=== PATIENT | female | born 1965 | race African-American/Black ===

== ENCOUNTER 2021-08-05 22:37 | Observation (INO) | payer OTHER, SELFPAY ==
--- NOTE | ~2021-08-05 | XR_ITS ---
EXAMINATION: XR thoracic spine 2V DATE: 08/07/2021 13:49 INDICATION: Back pain TECHNIQUE: AP, lateral and lateral swimmer's views of the thoracic spine were obtained. COMPARISON: None. FINDINGS: There is no fracture, dislocation, or subluxation. The vertebral body heights are normal. T here is mild loss of intervertebral disc space height at multiple levels in the thoracic spine. Small degenerative osteophytes project from the anterior endplates of multiple vertebral bodies. Left axil ruchi and superior mediastinal vascular stents are again noted. IMPRESSION: 1. Mild to moderate thoracic spondylosis without acute findings. Reviewed, dictated and finalized at location A.
--- NOTE | ~2021-08-05 | XR_ITS ---
EXAMINATION: XR chest 1V portable DATE: 08/06/2021 06:12 INDICATION: Shortness of breath TECHNIQUE: frontal view of the chest was obtained. COMPARISON: None FINDINGS: Streaky opacities in the left mid and bilateral lower lung zones and favor atelectasis over pneumonia . No pleural effusion or pneumothorax. Borderline heart size accounting for AP technique. Vascular st ents at the left axilla, unclear whether arterial or venous and at the superior mediastinum with coar se most consistent with the left brachiocephalic vein. IMPRESSION: 1. Mild streaky opacities in the left mid and bilateral lower lung zones and favor atelectasis over p neumonia. 2. Borderline heart size accounting for AP technique. Reviewed, dictated and finalized at location A. IMPRESSION: 1. Mild streaky opacities in the left mid and bilateral lower lung zones and fa vor atelectasis over pneumonia. 2. Borderline heart size accounting for AP technique.
--- NOTE | ~2021-08-05 | XR_ITS ---
EXAMINATION: XR lumbar spine 2-3V DATE: 08/07/2021 13:49 INDICATION: Low back pain TECHNIQUE: Anteroposterior and lateral views of the lumbar spine, and cone-down lateral view of the l umbosacral junction were obtained. COMPARISON: None. FINDINGS: There is no fracture, dislocation, or subluxation. There is mild loss of intervertebral dis c space height throughout the lumbar spine. The vertebral body heights are maintained. Calcified athe rosclerosis is noted. Small degenerative osteophytes project from the anterior endplates of multiple vertebral bodies. Surgical clips in the right upper quadrant are likely from prior cholecystectomy. IMPRESSION: 1. Mild lumbar spondylosis without acute findings. Reviewed, dictated and finalized at location A.
--- NOTE | 2021-08-05 21:17 | ADMGEN ---
This patient, Traci Zapata, was admitted to Medical Room 250-01. Patient/family oriented to hospital policies and general routines including ID bracelet, bed and alarms, visiting hours, pain management, procedures, bathroom and other care routines, personal items, smoking policy, room service/diet, and visiting hours. Information on how to activate the Rapid Response Team has been discussed. Patient/Family are encouraged to report perceived risks to care and to ask questions if they do not understand what they are told or what they should do.
[2021-08-05 21:58] VITALS: BP 164/85; PULSE 88; RESP 16; TEMP 36.5; O2SAT 99; BMI 30.2
[2021-08-05 22:00] VITALS: PULSE 101
--- NOTE | 2021-08-05 22:53 | PM.IMHP ---
H&P: HPI History of Present Illness Date/Time: 08/05/21 22:53 this is a 56-year-old female patient who went to [facility] for shortness of breath. The patient has end-stage renal disease and typically gets dialysis on Wednesday. The last time the patient had dialysis was this past Wednesday. Which was 1 week ago. The patient stated that she did not go to dialysis because she did not have a ride. The patient was checked for COVID-19 at the outside facility and was found to be negative. Patient's potassium was found to be 6.3. The outside facility did notify the nephrologists here Dr. Taylor who did not recommend any treatment for the hyperkalemia at this time and agrees to consult on the patient. The patient's blood sugar was found to be 114. BUN 96. Creatinine 19.0. Her anion gap was found to be 33. All of these labs were found to be abnormal at the outside facility. Report was given to me by Dr. Karuna Quinones. the patient was given a nebulizer treatment, regular insulin IV fluids x1. Her pulse ox was 98 % on room air. according to the ER doctor at the outside facility there was no dialysis available for the patient at their facility. The patient is being admitted to inpatient services on 08/05/2021 Chief Complaint: shortness of breath Review of Systems Review of Systems: All systems reviewed & are unremarkable except as noted in HPI and below Constitutional: Constitutional: Reports as per HPI and Reports no additional constitutional complaints Eyes: Eyes: Reports as per HPI and Reports no additional eye complaints ENT: Reports system reviewed and no additional complaints, except as documented and Reports Normal hearing present Cardiovascular: Cardiovascular: Reports no additional cardiovascular complaints Respiratory: Respiratory: Reports no additional respiratory complaints and Reports no additional respiratory complaints Gastrointestinal: Gastrointestinal: Reports as per HPI and Reports no additional gastrointestinal complaints Musculoskeletal: Musculoskeletal: Reports no additional musculoskeletal complaints Integumentary/Breasts: Skin/Breast: Reports system reviewed and no additional complaints, except as docu and Reports as per HPI Neurologic: Reports system reviewed and no additional complaints, except as documented, Reports as per HPI and Reports Normal hearing present Psychiatric: Psychiatric: Reports no additional psychiatric complaints and Reports as per HPI Endocrine: Endocrine: Reports no additional endocrine complaints Hematologic/Lymphatic: Hematologic/Lymphatic: Reports no additional hematologic/lymphatic complaints Allergic/Immunologic: Allergic/Immunologic: Reports no additional allergic/immunologic complaints PMFSH Past Medical History Medical History Chronic back pain DM2 (diabetes mellitus, type 2) End stage renal disease on dialysis Wednesday History of pulmonary embolism Hyperlipidemia Hypertension Personal history of deep vein thrombosis Presence of arteriovenous dialysis shunt left forearm Superior vena cava syndrome Tobacco use Surgical History Surgical History (Updated 08/05/21 @ 23:03 by Sobia Hogan NP) History of 3 sections History of removal of hemodialysis arteriovenous shunt of right upper extremity Family History Family History Mother Acute myocardial infarction Congestive heart failure Diabetes mellitus Father Cerebrovascular accident Diabetes mellitus Hypertension Social History Social History (Updated 08/05/21 @ 23:04 by Sobia Hogan NP) Social History: the patient smokes marijuana 3 times a week. She smokes 2 cigarettes a day. No alcohol. She was with her boyfriend. she is disabled. She has 3 children and she Wants them as the durable power banking attorney for healthcare. The patient is a full code. Smoking status: Current every
[2021-08-05 23:37] LABS: Prothrombin Time 13.1 Seconds (11.1-14.7)
[2021-08-06] VITALS (29 sets, daily range): BP systolic 136–189; BP diastolic 61–94; PULSE 59–98; RESP 16–21; TEMP 35.7–37; O2SAT 98–100; BMI 30.2
[2021-08-06 00:03] LABS: Anion Gap 24 mmol/L (8-16); Blood Urea Nitrogen 104 mg/dL (7-17); Carbon Dioxide 20 mmol/L (22-30); Chloride 98 mmol/L (98-107); Estimated CRCL calculation 3 ml/min; Estimated Glomerular Filt Rate 2; Glucose 127 mg/dL (65-110); Magnesium 2.3 mg/dL (1.6-2.3); Phosphorus 9.7 mg/dL (2.5-4.5); Potassium 5.8 mmol/L (3.4-5.0); Sodium 142 mmol/L (137-145)
[2021-08-06] MEDS: ROSUVASTATIN 5 MG TABLET PO ×2 (00:28→21:08)
[2021-08-06] MEDS: METOPROLOL TARTRATE 25 MG TABLET PO ×3 (00:28→21:08)
[2021-08-06] MEDS: MIRTAZAPINE 15 MG TABLET PO ×2 (00:29→21:08)
[2021-08-06 05:33] LABS: Basophils Percent Auto 0.3 % (0.2-1.2); Eosinophils Absolute Auto 0.1 K/mm3 (0-0.3); Eosinophils Percent Auto 1.4 % (0-4.4); Hematocrit 28.3 % (37.0-47.0); Hemoglobin 8.8 g/dL (12.0-15.0); Immature Granulocyte Absolute 0.02 K/mm3 (0.00-0.031); Immature Granulocyte Percent A 0.3 % (0-0.5); Lymphocytes Absolute Auto 0.75 K/mm3 (0.9-3.2); Lymphocytes Percent Auto 11.9 % (18.3-44.2); Mean Corpuscular HGB Conc 31.1 g/dl (32-36); Mean Corpuscular Hemoglobin 28.1 pg (26-34); Mean Corpuscular Volume 90.4 fl (80-100); Mean Platelet Volume 9.9 fl (7.4-10.4); Monocytes Absolute Auto 0.8 K/mm3 (0.1-0.6); Monocytes Percent Auto 11.9 % (2.6-8.5); Neutrophils Absolute Auto 4.7 K/mm3 (1.3-6.7); Neutrophils Percent Auto 74.2 % (45.5-73.1); Platelet Count Result 228 k/mm3 (150-375); Red Blood Count 3.13 M/mm3 (4.2-5.4); Red Cell Distribution Width 17.3 % (11.5-14.5); White Blood Count 6.3 K/mm3 (4.5-10.0)
[2021-08-06 05:38] LABS: INR 1.1; Prothrombin Time 13.6 Seconds (11.1-14.7)
[2021-08-06 06:52] LABS: Hepatitis B Surface Antigen Negative (Negative)
[2021-08-06 06:55] LABS: Glucose Point of Care 70 mg/dl (65-105)
--- NOTE | 2021-08-06 06:55 | PC.NURSE ---
ACCUCHECK 70, APPLE JUICE GIVEN
[2021-08-06 06:57] LABS: HAV RESULT Negative (Negative); Hepatitis B Core IgM Result Negative (Negative)
[2021-08-06 07:20] LABS: Hepatitis B Surface Anti Res Positive; Hepatitis C Virus Antibody Negative (Negative)
[2021-08-06 09:27] LABS: Albumin Level 3.9 g/dL (3.5-5.1); Anion Gap 20 mmol/L (8-16); Blood Urea Nitrogen 110 mg/dL (7-17); Calcium 8.1 mg/dL (8.4-10.2); Carbon Dioxide 19 mmol/L (22-30); Chloride 100 mmol/L (98-107); Glucose 88 mg/dL (65-110); Phosphorus 10.8 mg/dL (2.5-4.5); Potassium 6.6 mmol/L (3.4-5.0); Sodium 139 mmol/L (137-145)
[2021-08-06] MEDS: HYDROcodone/acetaminophen (*CRX) 7.5-325 MG TABLET 1 TAB PO ×2 (09:35→16:49)
[2021-08-06] MEDS: ASPIRIN 81 MG ENTERIC TABLET PO (09:36)
[2021-08-06] MEDS: PANTOPRAZOLE 40 MG TABLET PO (09:36)
[2021-08-06] MEDS: CALCIUM ACETATE 667 MG TABLET 1334 MG PO ×2 (09:36→16:50)
[2021-08-06] MEDS: lisinopriL 20 MG TABLET PO (09:37)
[2021-08-06 10:15] LABS: Estimated CRCL calculation 3 ml/min; Estimated Glomerular Filt Rate 2
--- NOTE | 2021-08-06 10:42 | PC.NURSE ---
pt to dialysis via bed
[2021-08-06] MEDS: EPOETIN ALFA-EPBX 10,000 UNITS/ML VIAL 10000 UNITS IV PUSH (12:30)
[2021-08-06] MEDS: SODIUM CHLORIDE 0.9% IV 1,000 ML 100 ML IV CONT (12:39)
--- NOTE | 2021-08-06 12:44 | PM.PNNEP ---
Progress Note: A&P Assessment and Plan (1) End stage renal disease: Code(s): N18.6 - End stage renal disease Status: Chronic Assessment and Plan: HD today and plan HD tomorrow follow electrolytes, volume status and clearance FULL CONSULT to follow Subjective Date/time seen: 08/06/21 12:44 Patient tolerating dialysis at the time of my visit (seen on HD at 12:30PM); appears to be feeling better in general since treatment started; no apparent distress to report currently. Exam Narrative: General: WD/WN AA female in NAD Heart: normal S1 and S2; no rub Lungs: coarse breath sound with scattered crackles Abdomen: soft, nontender, nondistended, positive bowel sounds Extremities: no cyanosis or clubbing; 1+ edema Skin: warm and dry Objective Data Vital Signs Vital Signs: Vital Signs Temp Pulse Resp BP Pulse Ox 08/06/21 12:30 62 159/79 H 08/06/21 12:15 61 162/80 H 08/06/21 12:00 63 153/81 H 08/06/21 11:45 65 149/81 H 08/06/21 11:30 62 151/82 H 08/06/21 11:15 66 152/79 H 08/06/21 11:00 64 180/90 H 08/06/21 10:50 36.4 C L 66 18 183/91 H 08/06/21 09:37 78 08/06/21 08:06 35.7 C L 73 20 186/85 H 98 08/06/21 05:28 36.4 C L 70 16 181/89 H 99 08/06/21 04:00 67 08/06/21 01:12 36.4 C 90 20 189/80 H 99 08/06/21 00:28 98 08/06/21 00:00 85 08/05/21 22:00 101 H 08/05/21 21:58 36.5 C 88 16 164/85 H 99 Intake/Output Intake/Output: Intake & Output 08/03/21 08/04/21 08/05/21 08/06/21 23:59 23:59 23:59 23:59 Intake Total 540 Balance 540 Meds/Results Medications: Active Medications Generic Name Dose Route Start Last Admin Trade Name Freq PRN Reason Stop Dose Admin Hydrocodone Bitart/Acetaminophen 1 tab 08/05/21 23:07 09/15/21 09:35 Hydrocodone/Acetaminophen (*Crx) 7.5-325 Mg Tablet PO 1 tab Q6H PRN Administration Pain (Scale Score 4-6) Aspirin 81 mg 08/06/21 09:00 08/06/21 09:36 Aspirin 81 Mg Enteric Tablet PO 81 mg DAILY ELLIOT Administration Calcium Acetate 1,334 mg 08/06/21 08:00 08/06/21 09:36 Calcium Acetate 667 Mg Tablet PO 1,334 mg TIDWM ELLIOT Administration Dextrose 12.5 gm 08/05/21 23:09 Dextrose 50% 25 Gm/50 Ml Syringe IV PUSH PRN PRN Hypoglycemia Protocol Epoetin Vimal-epbx 10,000 units 08/06/21 19:09 08/06/21 12:30 Epoetin Vimal-Epbx 10,000 Units/Ml Vial IV PUSH 08/06/21 19:10 10,000 units ONCE ONE Administration Ergocalciferol 50,000 unit 08/06/21 09:00 Ergocalciferol 50,000 Unit Capsule PO DAILY ELLIOT Glucagon 1 mg 08/05/21 23:09 Glucagon For Inj 1 Mg Vial IM PRN PRN Hypoglycemia Protocol Glucose 15 gm 08/05/21 23:09 Glucose Oral Gel 15 Gm Of Glucse In 37.5 Gm Tube PO PRN PRN Hypoglycemia Protocol Dextrose 1,000 mls @ 100 mls/hr 08/05/21 23:09 Dextrose 5% 1,000 Ml IVPB PRN PRN Hypoglycemia Protocol Albumin Human 50 mls @ 999 mls/hr 08/06/21 07:07 Albutein IVPB 09/05/21 07:06 Q10M PRN HYPOTENSION Insulin Aspart 2 - 5 units 08/06/21 08:00 08/06/21 08:00 Insulin Aspart (*Bkc) 100 Units/Ml SUB-Q Not Given TIDWM ELLIOT Protocol Lisinopril 20 mg 08/06/21 09:00 08/06/21 09:37 Lisinopril 20 Mg Tablet PO 20 mg DAILY ELLIOT Administration Metoprolol Tartrate 25 mg 08/05/21 23:15 08/06/21 09:37 Metoprolol Tartrate 25 Mg Tablet PO 25 mg Q12HR ELLIOT Administration Mirtazapine 15 mg 08/05/21 23:15 08/06/21 00:29 Mirtazapine 15 Mg Tablet PO 15 mg HS ELLIOT Administration Pantoprazole Sodium 40 mg 08/06/21 09:00 08/06/21 09:36 Pantoprazole 40 Mg Tablet PO 40 mg DAILY ELLIOT Administration Rosuvastatin Calcium 5 mg 08/05/21 23:15 08/06/21 00:28 Rosuvastatin 5 Mg Tablet PO 5 mg HS ELLIOT Administration Warfarin Sodium 5 mg 08/06/21 17:00 Warfarin (*Pbkc) 5 Mg Tablet
--- NOTE | 2021-08-06 14:51 | PM.IMPN ---
Progress Note: A&P Assessment and Plan (1) Missed dialysis: Status: Acute Assessment and Plan: patient presented to the ER due to electrolyte abnormalities from missing her dialysis - she is usually on a Wednesday / / Wednesday schedule. she missed 3 sessions -she was dialyzed today 08/06/21 with 2 L out - I suspect she will be dialyzed again tomorrow as she still has some swelling to her face and arms - I stressed the importance of keeping her dialysis appointments. She states that she missed her ride and then all her family was out of town. She is going to try harder so this does not happen again. (2) Hypervolemia associated with renal insufficiency: Code(s): E87.70 - Fluid overload, unspecified; N28.9 - Disorder of kidney and ureter, unspecified Status: Acute Assessment and Plan: As above (3) Hyperkalemia: Code(s): E87.5 - Hyperkalemia Status: Acute Assessment and Plan: due to above - she was dialyzed 08/06, recheck renal function panel tomorrow - continue telemetry (4) End stage renal disease on dialysis: Code(s): N18.6 - End stage renal disease; Z99.2 - Dependence on renal dialysis Status: Acute Assessment and Plan: as above (5) Personal history of deep vein thrombosis: Code(s): Z86.718 - Personal history of other venous thrombosis and embolism Status: Chronic Assessment and Plan: patient reports that she has had multiple blood clots throughout her life and her last 1 was years ago - she takes warfarin off and on . when asked why she does not take it routinely she says she does not know - her INR is 1.1, I suspect she is not taking - I am going to see if care coordination can holland Laure due to her noncompliance this might be a better choice than warfarin (6) History of pulmonary embolism: Code(s): Z86.711 - Personal history of pulmonary embolism Status: Chronic Assessment and Plan: as above (7) DM2 (diabetes mellitus, type 2): Code(s): E11.9 - Type 2 diabetes mellitus without complications Status: Chronic Assessment and Plan: Last glucose 70 - patient states she is diet controlled at home. Continue with such - A1c pending - continue sliding scale insulin (8) Hypertension: Code(s): I10 - Essential (primary) hypertension Status: Chronic Assessment and Plan: last blood pressure 169/88 - continue home lisinopril and metoprolol (9) Hyperlipidemia: Code(s): E78.5 - Hyperlipidemia, unspecified Status: Chronic Assessment and Plan: continue with Crestor (10) Tobacco use: Code(s): Z72.0 - Tobacco use Status: Chronic Assessment and Plan: advised to quit smoking (11) Chronic back pain: Code(s): M54.9 - Dorsalgia, unspecified; G89.29 - Other chronic pain Status: Chronic Assessment and Plan: no complaints on exam Time Spent With Patient Time with patient: 25 - 35 minutes Subjective Date/time seen: 08/06/21 14:51 Interval history: Pt is a 56-year-old female here for electrolyte abnormalities due to missing dialysis. Patient was seen today and states that she came in due to chest and facial swelling. This has improved. she is currently in dialysis and has no complaints. Pt denies nausea, vomiting, fevers, chills, constipation, diarrhea, chest pain, or shortness of breath. She does have some abdominal pain on palpation. Review of Systems Review of Systems: All systems reviewed & are unremarkable except as noted in HPI and below Exam Narrative: General: Well developed well nourished patient in NAD HEENT: normocephalic, facial swelling noted Neck: supple Neuro: Alert and oriented x4 CV:RRR. telemetry shows normal sinus rhythm with a rate of 63 but she did have some sinus bradycardia noted down to 41 Resp: slight crackl
--- NOTE | 2021-08-06 16:45 | PCDIET ---
pt refusing glucose gel, she is agreeable to drinking an apple juice and eating an applesauce, dinner tray confirmed to be on the way
[2021-08-06] MEDS: WARFARIN (*PBKC) 5 MG TABLET PO (16:50)
[2021-08-06 17:05] LABS: Glucose Point of Care 54 mg/dl (65-105)
[2021-08-06 19:22] LABS: Glucose Point of Care 119 mg/dl (65-105)
[2021-08-06] MEDS: HEPARIN SODIUM 5,000 UNITS/ML VIAL 5000 UNITS SUB-Q (21:08)
[2021-08-06 21:13] LABS: Glucose Point of Care 144 mg/dl (65-105)
[2021-08-06 21:50] LABS: Hemoglobin A1C 5.2 % (<5.7)
[2021-08-07] VITALS (16 sets, daily range): BP systolic 122–168; BP diastolic 55–90; PULSE 58–88; RESP 16–21; TEMP 36.6–37; O2SAT 97–100
[2021-08-07 05:52] LABS: Hematocrit 31.3 % (37.0-47.0); Hemoglobin 9.7 g/dL (12.0-15.0); Mean Corpuscular Volume 93.4 fl (80-100); Platelet Count Result 230 k/mm3 (150-375); Red Blood Count 3.35 M/mm3 (4.2-5.4); Red Cell Distribution Width 17.2 % (11.5-14.5); White Blood Count 4.3 K/mm3 (4.5-10.0)
[2021-08-07 06:01] LABS: INR 1.1; Prothrombin Time 13.7 Seconds (11.1-14.7)
[2021-08-07] MEDS: HEPARIN SODIUM 5,000 UNITS/ML VIAL 5000 UNITS SUB-Q (06:17)
[2021-08-07 06:19] LABS: Albumin Level 3.7 g/dL (3.5-5.1); Anion Gap 10 mmol/L (8-16); Blood Urea Nitrogen 45 mg/dL (7-17); Calcium 9.4 mg/dL (8.4-10.2); Carbon Dioxide 26 mmol/L (22-30); Chloride 102 mmol/L (98-107); Estimated CRCL calculation 6 ml/min; Estimated Glomerular Filt Rate 5; Glucose 85 mg/dL (65-110); Phosphorus 6.9 mg/dL (2.5-4.5); Sodium 138 mmol/L (137-145)
[2021-08-07] MEDS: HYDROcodone/acetaminophen (*CRX) 7.5-325 MG TABLET 1 TAB PO ×2 (06:19→19:56)
[2021-08-07 06:59] LABS: Glucose Point of Care 80 mg/dl (65-105)
[2021-08-07] MEDS: ASPIRIN 81 MG ENTERIC TABLET PO (08:02)
[2021-08-07] MEDS: CALCIUM ACETATE 667 MG TABLET 1334 MG PO ×3 (08:02→17:59)
[2021-08-07] MEDS: PANTOPRAZOLE 40 MG TABLET PO (08:02)
[2021-08-07] MEDS: METOPROLOL TARTRATE 25 MG TABLET PO ×2 (08:02→20:13)
[2021-08-07] MEDS: lisinopriL 20 MG TABLET PO (08:02)
[2021-08-07 13:06] LABS: Glucose Point of Care 102 mg/dl (65-105)
--- NOTE | 2021-08-07 13:13 | PM.IMPN ---
Progress Note: A&P Assessment and Plan (1) Missed dialysis: Status: Acute Assessment and Plan: patient presented to the ER due to electrolyte abnormalities from missing her dialysis - she is usually on a Wednesday / / Wednesday schedule. she missed 3 sessions -she was dialyzed today 08/06/21 with 2 L out and she has plans to be dialyzed later today - swelling improving - I stressed the importance of keeping her dialysis appointments. She states that she missed her ride and then all her family was out of town. She is going to try harder so this does not happen again. - likely discharge tomorrow (2) Hypervolemia associated with renal insufficiency: Code(s): E87.70 - Fluid overload, unspecified; N28.9 - Disorder of kidney and ureter, unspecified Status: Acute Assessment and Plan: As above (3) Hyperkalemia: Code(s): E87.5 - Hyperkalemia Status: Acute Assessment and Plan: resolved with dialysis - monitor daily labs - okay to discontinue telemetry (4) End stage renal disease on dialysis: Code(s): N18.6 - End stage renal disease; Z99.2 - Dependence on renal dialysis Status: Acute Assessment and Plan: as above (5) Personal history of deep vein thrombosis: Code(s): Z86.718 - Personal history of other venous thrombosis and embolism Status: Chronic Assessment and Plan: patient reports that she has had multiple blood clots throughout her life and her last 1 was years ago - she takes warfarin off and on . when asked why she does not take it routinely she says she does not know - her INR is 1.1, I suspect she is not taking - Eliquis has been approved. I am going to switch her to this because she is not compliant with warfarin monitoring (6) History of pulmonary embolism: Code(s): Z86.711 - Personal history of pulmonary embolism Status: Chronic Assessment and Plan: as above (7) DM2 (diabetes mellitus, type 2): Code(s): E11.9 - Type 2 diabetes mellitus without complications Status: Chronic Assessment and Plan: Last glucose 102 - patient states she is diet controlled at home. Continue with such - A1c 5.2, excellent control - continue sliding scale insulin (8) Hypertension: Code(s): I10 - Essential (primary) hypertension Status: Chronic Assessment and Plan: last blood pressure 142/90 - continue home lisinopril and metoprolol (9) Hyperlipidemia: Code(s): E78.5 - Hyperlipidemia, unspecified Status: Chronic Assessment and Plan: continue with Crestor (10) Tobacco use: Code(s): Z72.0 - Tobacco use Status: Chronic Assessment and Plan: advised to quit smoking (11) Chronic back pain: Code(s): M54.9 - Dorsalgia, unspecified; G89.29 - Other chronic pain Status: Chronic Assessment and Plan: worsening pain on exam - will obtain x-ray Subjective Date/time seen: 08/07/21 13:13 Interval history: Pt is a 56-year-old female here for electrolyte abnormalities due to missing dialysis. patient was seen today and says her swelling is better. She still feels somewhat swollen in her head and neck and arms but is improving. She still has palpable muscular skeletal chest pain but denies chest pressure, palpitations, arm or jaw pain. She has no shortness of breath. She is eating and drinking well. today she complains of worsening back pain. She said she broke 6 discs 6 years ago and has not had any trauma since but that it is becoming more painful. She is noncompliant with her warfarin and I spoke to her about Eliquis and she is agreeable to this. Exam Narrative: General: Well developed well nourished patient in NAD HEENT: normocephalic, facial swelling noted ( Improved) Neck: supple Neuro: Alert and oriented x4 CV: regular rate and rhythm on exam.
--- NOTE | 2021-08-07 14:02 | PM.CNNEP ---
Assessment and Plan Assessment and plan (1) End stage renal disease: Code(s): N18.6 - End stage renal disease Status: Chronic Assessment and Plan: HD yesterday and today to resume T/T/S dialysis schedule continue to optimize electrolytes, volume status, and clearance (2) Missed dialysis: Status: Acute Assessment and Plan: due to lack of transportation +/- compliance issues case management attempting to help (3) Hyperkalemia: Code(s): E87.5 - Hyperkalemia Status: Acute Assessment and Plan: due to missed dialysis treatments corrected with dialysis follow trend (4) Hypertension: Code(s): I10 - Essential (primary) hypertension Status: Chronic Assessment and Plan: reasonable control should improved with fluid removal with dialysis follow trend of hemodynamics (5) DM2 (diabetes mellitus, type 2): Code(s): E11.9 - Type 2 diabetes mellitus without complications Status: Chronic Assessment and Plan: follow accuchecks glycemic control Will continue to follow -- not opposed to discharge from renal perspective once transportation issues resolved/fixed. History of Present Illness Reason for Consult Consult date: 08/07/21 Reason for consult: end stage renal disease Chief Complaint Chief complaint: ESRD Hyperkalemia History of Present Illness Narrative: The patient is a 56-year-old female with a past medical histoyr as outlined below who presented as a transfer from an OSH when she presented to the OSH ER with complaints of shortness of breath. The patient initially presented to [facility] for shortness of breath. She has a known history of end-stage renal disease but apparently has not been able to receive dialysis for the last week. Apparently, her transportation from home to the dialysis clinic had not been able to get her to her dialysis treatments. Unfortunately, without her dialysis treatments, she suddenly started to get short of breath to the point where she presented to the outside hospital emergency room for further evaluation. . Workup and evaluation at [facility] emergency room demonstrated labs consistent with her known history of end-stage renal disease as well as consistent with the fact that she had not had dialysis for an extended period of time. Her BUN was 96, her creatinine was 19 and her potassium was elevated at 6.3. She received medical management for her hyperkalemia but the outside hospital did not have any dialysis capabilities. Furthermore, despite her abnormal labs, her volume status was relatively stable despite her complaints of shortness of breath and under ideal conditions, it was felt that she could be discharged from the outside hospital emergency room with planned hemodialysis the day after at her outpatient dialysis clinic. Unfortunately it was unclear if she would have a ride /transportation to her outpatient dialysis clinic in which case she may miss another session of dialysis as she has had in the last week. Hence, the decision was made to transfer her to [facility] for dialysis and social work/care coordination consultation to ensure adequate/reliable transportation to her outpatient dialysis clinic. Following transfer to [facility], she received dialysis yesterday with a tentative plan for dialysis again tomorrow to get her back on to her Wednesday schedule. Her renal parameters / labs improved with dialytic intervention as did her shortness of breath. Renal consultation was requested due to her end-stage renal disease. The patient normally dialyzes on a Wednesday, , Wednesday schedule under the care of Dr. Keo Jarrett at [facility]. On further investigation and discussion with her outpatient dialysis clinic, she does have transportation set up to travel from her home to dialysis and back
[2021-08-07 17:01] LABS: Glucose Point of Care 86 mg/dl (65-105)
[2021-08-07] MEDS: MIRTAZAPINE 15 MG TABLET PO (20:13)
[2021-08-07] MEDS: ROSUVASTATIN 5 MG TABLET PO (20:13)
[2021-08-07] MEDS: APIXABAN 5 MG TABLET PO (20:13)
[2021-08-07] MEDS: EPOETIN ALFA-EPBX 10,000 UNITS/ML VIAL 10000 UNITS IV PUSH (21:00)
[2021-08-07 22:55] LABS: Glucose Point of Care 105 mg/dl (65-105)
[2021-08-08] VITALS: BP 149/59; PULSE 76; RESP 15; TEMP 36.2; O2SAT 94
[2021-08-08 00:04] VITALS: BP 128/65; PULSE 70; RESP 18; TEMP 36.4
[2021-08-08 03:58] VITALS: BP 125/61; PULSE 70; RESP 17; TEMP 37.1; O2SAT 100
[2021-08-08 05:53] LABS: INR 1.2; Prothrombin Time 14.7 Seconds (11.1-14.7)
[2021-08-08 05:55] LABS: Basophils Percent Auto 0.4 % (0.2-1.2); Eosinophils Absolute Auto 0.2 K/mm3 (0-0.3); Eosinophils Percent Auto 3.1 % (0-4.4); Hematocrit 29.2 % (37.0-47.0); Hemoglobin 9.1 g/dL (12.0-15.0); Immature Granulocyte Absolute 0.02 K/mm3 (0.00-0.031); Immature Granulocyte Percent A 0.4 % (0-0.5); Lymphocytes Percent Auto 14.4 % (18.3-44.2); Mean Corpuscular HGB Conc 31.2 g/dl (32-36); Mean Corpuscular Hemoglobin 28.5 pg (26-34); Mean Corpuscular Volume 91.5 fl (80-100); Mean Platelet Volume 10.2 fl (7.4-10.4); Monocytes Absolute Auto 1.1 K/mm3 (0.1-0.6); Neutrophils Absolute Auto 2.9 K/mm3 (1.3-6.7); Neutrophils Percent Auto 59.7 % (45.5-73.1); Platelet Count Result 219 k/mm3 (150-375); Red Blood Count 3.19 M/mm3 (4.2-5.4); Red Cell Distribution Width 17.1 % (11.5-14.5); White Blood Count 4.9 K/mm3 (4.5-10.0)
[2021-08-08 06:23] LABS: Albumin Level 3.6 g/dL (3.5-5.1); Anion Gap 9 mmol/L (8-16); Blood Urea Nitrogen 23 mg/dL (7-17); Calcium 8.8 mg/dL (8.4-10.2); Carbon Dioxide 30 mmol/L (22-30); Chloride 101 mmol/L (98-107); Estimated CRCL calculation 8 ml/min; Estimated Glomerular Filt Rate 8; Glucose 126 mg/dL (65-110); Phosphorus 4.4 mg/dL (2.5-4.5); Potassium 4.3 mmol/L (3.4-5.0); Sodium 140 mmol/L (137-145)
[2021-08-08] MEDS: HYDROcodone/acetaminophen (*CRX) 7.5-325 MG TABLET 1 TAB PO (08:27)
[2021-08-08] MEDS: CALCIUM ACETATE 667 MG TABLET 1334 MG PO ×2 (08:31→12:10)
[2021-08-08 08:32] VITALS: PULSE 70
[2021-08-08] MEDS: METOPROLOL TARTRATE 25 MG TABLET PO (08:32)
[2021-08-08] MEDS: ASPIRIN 81 MG ENTERIC TABLET PO (08:32)
[2021-08-08] MEDS: APIXABAN 5 MG TABLET PO (08:32)
[2021-08-08] MEDS: PANTOPRAZOLE 40 MG TABLET PO (08:32)
[2021-08-08] MEDS: lisinopriL 20 MG TABLET PO (08:32)
[2021-08-08 09:02] VITALS: BP 144/65; PULSE 72; RESP 16; TEMP 36.4; O2SAT 100
--- NOTE | 2021-08-08 11:15 | PM.DS ---
DS: Admitting Diagnosis Discharge Date 08/08/2021 Admitting Diagnosis Hypervolemia, electrolyte abnormalities, missed dialysis DS: Discharge Diagnosis Discharge Diagnosis (1) Missed dialysis: Status: Acute Assessment and Plan: patient presented to the ER due to electrolyte abnormalities from missing her dialysis - she is usually on a Wednesday / / Wednesday schedule. she missed 3 sessions -she was dialyzed today 08/06/21 and 08/07 with a total of 5L taken off -her swelling has improved - I stressed the importance of keeping her dialysis appointments. She states that she missed her ride and then all her family was out of town. -spoke with care coordination who has contacted her case management social worker and [employer]. She has an ongoing appointment with a ride [facility] for every dialysis day. (2) Hypervolemia associated with renal insufficiency: Code(s): E87.70 - Fluid overload, unspecified; N28.9 - Disorder of kidney and ureter, unspecified Status: Acute Assessment and Plan: As above (3) Hyperkalemia: Code(s): E87.5 - Hyperkalemia Status: Acute Assessment and Plan: resolved with dialysis (4) End stage renal disease on dialysis: Code(s): N18.6 - End stage renal disease; Z99.2 - Dependence on renal dialysis Status: Acute Assessment and Plan: as above (5) Personal history of deep vein thrombosis: Code(s): Z86.718 - Personal history of other venous thrombosis and embolism Status: Chronic Assessment and Plan: patient reports that she has had multiple blood clots throughout her life and her last 1 was years ago - she takes warfarin off and on . when asked why she does not take it routinely she says she does not know - her INR is 1.1, I suspect she is not taking - Eliquis has been approved. I am going to switch her to this because she is not compliant with warfarin monitoring (6) History of pulmonary embolism: Code(s): Z86.711 - Personal history of pulmonary embolism Status: Chronic Assessment and Plan: as above (7) DM2 (diabetes mellitus, type 2): Code(s): E11.9 - Type 2 diabetes mellitus without complications Status: Chronic Assessment and Plan: Last glucose 126 - patient states she is diet controlled at home. Continue with such - A1c 5.2, excellent control (8) Hypertension: Code(s): I10 - Essential (primary) hypertension Status: Chronic Assessment and Plan: last blood pressure 144/65 - continue home lisinopril and metoprolol (9) Hyperlipidemia: Code(s): E78.5 - Hyperlipidemia, unspecified Status: Chronic Assessment and Plan: continue with Crestor (10) Tobacco use: Code(s): Z72.0 - Tobacco use Status: Chronic Assessment and Plan: advised to quit smoking (11) Chronic back pain: Code(s): M54.9 - Dorsalgia, unspecified; G89.29 - Other chronic pain Status: Chronic Assessment and Plan: worsening pain on exam -x-ray without acute abnormalities DS: Summary Hospital Course Hospital Course: Date of service 08/08/2021 Patient is a 56-year-old with a history of end-stage renal disease on dialysis who presented emergency room for shortness of breath after missing 3 days worth of dialysis per the patient. She had electrolyte abnormalities which included potassium 6.3. She was admitted for dialysis. She was dialyze 08/06 and 08/07 with a total of 5 L taken off. Her swelling greatly improved. The day of discharge she was back to her baseline ready to go. It is confirmed that the patient has a ride to her next dialysis on Wednesday and I explained her how important it is to make sure that she goes to dialysis every day that she is scheduled to prevent sudden . I also talked to her about switching her from warfarin to Eliquis. She states she [facility]
== END 2021-08-08 14:20 | disposition home or self-care (01) ==
PROVIDERS: Internal Medicine Nephrology; Nurse Practitioner; Admitting Provider Internal Medicine; Visit Provider Physician Assistant
DX: E87.70 Fluid overload, unspecified (principal); I12.0 Hypertensive chronic kidney disease with stage 5 chronic kidney disease or end stage renal disease; E11.22 Type 2 diabetes mellitus with diabetic chronic kidney disease; N18.6 End stage renal disease; Z99.2 Dependence on renal dialysis; E87.5 Hyperkalemia; R06.02 Shortness of breath; E78.5 Hyperlipidemia, unspecified; F17.210 Nicotine dependence, cigarettes, uncomplicated; M47.814 Spondylosis without myelopathy or radiculopathy, thoracic region; M47.816 Spondylosis without myelopathy or radiculopathy, lumbar region; R53.1 Weakness; Z86.718 Personal history of other venous thrombosis and embolism; Z86.711 Personal history of pulmonary embolism; Z79.01 Long term (current) use of anticoagulants; Z91.15 Patient's noncompliance with renal dialysis; Z91.14 Patient's other noncompliance with medication regimen; Z79.4 Long term (current) use of insulin
CPT/HCPCS: 36415; 71045; 72070; 72100; 80048; 80069; 80074; 82948; 83036; 83735; 84100; 85025; 85027; 85610; 86706; 96372; 96374; A9270; G0257; G0378; G0379; J1644; J7030; Q5106